=== PATIENT | male | born 1950 | race Caucasian/White ===

== ENCOUNTER 2016-08-15 13:48 | Inpatient (IN) | payer OTHER ==
[~2016-08-15] VITALS: Ht 177.8 cm; Wt 83.7 kg
[2016-08-15 15:59] LABS: BASOPHIL % 0.2 % (0-2); PLATELET COUNT 351 x10^3mcL (130-400); RED CELL DISTRIBUTION WIDTH 14.3 % (11.5-14.5)
[2016-08-15 16:09] LABS: CALCIUM 8.9 mg/dL (8.5-10.1); CARBON DIOXIDE 28.1 mmol/L (21-32); CHLORIDE SERUM 104 mmol/L (98-107); CREATININE SERUM 1.1 mg/dL (0.7-1.3); GFR1 > 60 mL/min; GLUCOSE SERUM 93 mg/dL (74-106); SODIUM SERUM 139 mmol/L (136-145)
[2016-08-15 16:26] LABS: ALBUMIN 3.6 g/dL (3.4-5.0); ALKALINE PHOSPHATASE 97 U/L (46-116); ALT/SGPT 23 U/L (16-63); AST/SGOT 15 U/L (15-37); BILIRUBIN TOTAL 0.4 mg/dL (0.20-1.00); TOTAL PROTEIN, SERUM 7.5 g/dL (6.4-8.2)
[2016-08-15 17:43] LABS: microscopic required? NO
[2016-08-15 17:50] LABS: UA SPECIFIC GRAVITY 1.015 (1.005-1.035); urine erythrocyte NEGATIVE (NEGATIVE)
[2016-08-15 17:57] VITALS: BP 138/88
[2016-08-15 17:59] VITALS: BP 112/69
[2016-08-15 18:46] LABS: CHOLESTEROL/HDL RATIO 4.2
[2016-08-15 18:50] LABS: T3 TOTAL 1.17 ng/mL
[2016-08-15 18:55] LABS: FREE T4 0.97 ng/dL (0.76-1.46); FREE THYROXINE INDEX 3.1 ug/dL (1.4-4.5); T4(THYROXINE) 8.5 ug/dL (4.7-13.3)
[2016-08-15 19:22] LABS: AMPHETAMINE QUAL UR NONE DETECTED (NEG <=1000)
[2016-08-15 21:33] VITALS: BP 128/79
[2016-08-16 05:55] VITALS: BP 117/60
[2016-08-16 06:12] LABS: PLATELET COUNT 334 x10^3mcL (130-400)
[2016-08-16 06:20] LABS: CALCIUM 8.8 mg/dL (8.5-10.1); CARBON DIOXIDE 24.7 mmol/L (21-32); CHLORIDE SERUM 106 mmol/L (98-107); GFR1 > 60 mL/min; GLUCOSE SERUM 128 mg/dL (74-106); MAGNESIUM 2.6 mg/dL (1.8-2.4); POTASSIUM SERUM 4.5 mmol/L (3.5-5.1); SODIUM SERUM 139 mmol/L (136-145)
[2016-08-16 06:25] LABS: BASOPHIL % 0 % (0-2)
[2016-08-16 10:00] VITALS: BP 123/76
[2016-08-16 14:36] VITALS: BP 110/64
[2016-08-16 18:14] VITALS: BP 99/65
[2016-08-16 21:46] VITALS: BP 93/50
[2016-08-17 06:08] VITALS: BP 102/60
[2016-08-17 07:52] LABS: PLATELET COUNT 327 x10^3mcL (130-400); RED CELL DISTRIBUTION WIDTH 14.1 % (11.5-14.5)
[2016-08-17 08:02] LABS: CARBON DIOXIDE 28.5 mmol/L (21-32); CHLORIDE SERUM 108 mmol/L (98-107); CREATININE SERUM 0.9 mg/dL (0.7-1.3); GFR1 > 60 mL/min; GLUCOSE SERUM 128 mg/dL (74-106); SODIUM SERUM 140 mmol/L (136-145)
[2016-08-17 09:47] VITALS: BP 113/71
[2016-08-17 11:46] LABS: BAND NEUTROPHIL 0 % (0-10); BASOPHIL 0 % (0-2); MONOCYTE 3 % (0-7); SEGMENTED NEUTROPHILS 94 % (37-75); rbc morphology (normal/abnorm) NORMAL (NORMAL)
[2016-08-17 11:47] LABS: PLATELET MORPHOLOGY PLATELETS NORMAL
[2016-08-17 13:29] VITALS: BP 121/73
[2016-08-17 17:05] VITALS: BP 124/76
[2016-08-17 20:55] VITALS: BP 115/72
[2016-08-18 06:22] LABS: BASOPHIL % 0.1 % (0-2); PLATELET COUNT 304 x10^3mcL (130-400); RED CELL DISTRIBUTION WIDTH 14.5 % (11.5-14.5)
[2016-08-18 06:29] VITALS: BP 113/72
[2016-08-18 07:01] LABS: CALCIUM 8.5 mg/dL (8.5-10.1); CARBON DIOXIDE 28.6 mmol/L (21-32); CHLORIDE SERUM 108 mmol/L (98-107); CREATININE SERUM 1.1 mg/dL (0.7-1.3); GFR1 > 60 mL/min; GLUCOSE SERUM 84 mg/dL (74-106); MAGNESIUM 2.3 mg/dL (1.8-2.4); PHOSPHOROUS 2.8 mg/dL (2.5-4.9); POTASSIUM SERUM 4.2 mmol/L (3.5-5.1); SODIUM SERUM 142 mmol/L (136-145)
[2016-08-18] MEDS ORDERED: ALBUTEROL SULFAT3 ML NEB (10:15)
[2016-08-18] MEDS ORDERED: LEVAQUIN750 MG PO (10:17)
[2016-08-18] MEDS ORDERED: CLEOCIN HCL300 MG PO (10:17)
[2016-08-18] MEDS ORDERED: MONTELUKAST SOD10 M1 PO ×2 (10:18→10:28)
[2016-08-18] MEDS ORDERED: LAC PO (10:18)
[2016-08-18] MEDS ORDERED: NIC14 TD ×2 (10:23→10:28)
[2016-08-18] MEDS ORDERED: IPRATROPIUM BROM3 M2 INH (10:24)
[2016-08-18 10:32] VITALS: BP 120/78
[2016-08-18 11:20] VITALS: BP 120/78
== END 2016-08-18 16:55 | disposition home or self-care (01) | DRG 190 ==
LOC: ED 13:48 → MU 17:11 → DU 17:11 → MU 08-18 06:56
PROVIDERS: Emergency Medicine; Family Medicine; ADMIT Family Medicine
DX: J44.1 Chronic obstructive pulmonary disease with (acute) exacerbation (principal); J96.00 Acute respiratory failure, unspecified whether with hypoxia or hypercapnia; J98.11 Atelectasis; K21.9 Gastro-esophageal reflux disease without esophagitis; K27.9 Peptic ulcer, site unspecified, unspecified as acute or chronic, without hemorrhage or perforation; Z68.26 Body mass index [BMI] 26.0-26.9, adult; F17.210 Nicotine dependence, cigarettes, uncomplicated
CPT/HCPCS: 80307; 83880; 84439; 94150; C9113; G0480; J1956; J2405; J2920; J2930; J7030; J7613; J7620; J7626; J7644

== ENCOUNTER 2017-01-31 13:23 | Inpatient (IN) | payer OTHER ==
[~2017-01-31] VITALS: Ht 177.8 cm; Wt 80.5 kg
[~2017-01-31 13:23] MED LIST: ALBUTEROL SULFAT3 ML NEB; CLEOCIN HCL300 MG PO; IPRATROPIUM BROM3 M2 INH; LAC PO; LEVAQUIN750 MG PO; MONTELUKAST SOD10 M1 PO; NIC14 TD
[2017-01-31 13:46] LABS: BASOPHIL % 0.7 % (0-2); PLATELET COUNT 398 x10^3mcL (130-400); RED CELL DISTRIBUTION WIDTH 13.4 % (11.5-14.5)
[2017-01-31 13:56] LABS: CALCIUM 9.4 mg/dL (8.5-10.1); CARBON DIOXIDE 28.8 mmol/L (21-32); CHLORIDE SERUM 102 mmol/L (98-107); CREATININE SERUM 1.1 mg/dL (0.7-1.3); GFR1 > 60 mL/min; GLUCOSE SERUM 95 mg/dL (74-106); SODIUM SERUM 138 mmol/L (136-145)
[2017-01-31 14:00] LABS: ALKALINE PHOSPHATASE 78 U/L (46-116); ALT/SGPT 17 U/L (16-63); AST/SGOT 23 U/L (15-37); BILIRUBIN TOTAL 0.57 mg/dL (0.20-1.00); CHOLESTEROL 189 mg/dL (<200); HDL CHOLESTEROL 54 mg/dL (40-60); PHOSPHOROUS 2.4 mg/dL (2.5-4.9)
[2017-01-31 14:03] LABS: ALBUMIN 3.2 g/dL (3.4-5.0)
[2017-01-31] MEDS ORDERED: BAYER ASPIRIN R81 MG PO (15:30)
[2017-01-31] MEDS ORDERED: PROINH INH (15:31)
[2017-01-31] MEDS ORDERED: QVAR0.08 MG/Ac INH (15:31)
[2017-01-31] MEDS ORDERED: ALBUD INH (15:33)
[2017-01-31 15:46] LABS: T3 TOTAL 0.92 ng/mL
[2017-01-31 15:47] LABS: microscopic required? NO
[2017-01-31 15:53] LABS: CHOLESTEROL/HDL RATIO 3.7; MAGNESIUM 2.2 mg/dL (1.8-2.4)
[2017-01-31 16:01] LABS: urine erythrocyte NEGATIVE (NEGATIVE)
[2017-01-31 16:03] LABS: FREE T4 1.11 ng/dL (0.76-1.46); T4(THYROXINE) 8.2 ug/dL (4.7-13.3)
[2017-01-31 16:30] VITALS: BP 129/85
[2017-01-31 16:56] VITALS: Ht 177.8 cm; Wt 80.5 kg
[2017-01-31 18:13] VITALS: BP 129/85
[2017-01-31 21:51] VITALS: BP 124/78
[2017-02-01 05:38] VITALS: BP 107/73
[2017-02-01 06:33] LABS: BASOPHIL % 0.1 % (0-2); PLATELET COUNT 383 x10^3mcL (130-400); RED CELL DISTRIBUTION WIDTH 14.1 % (11.5-14.5)
[2017-02-01 06:41] LABS: CALCIUM 9.1 mg/dL (8.5-10.1); CARBON DIOXIDE 30.1 mmol/L (21-32); CHLORIDE SERUM 104 mmol/L (98-107); CREATININE SERUM 0.9 mg/dL (0.7-1.3); GFR1 > 60 mL/min; GLUCOSE SERUM 112 mg/dL (74-106); MAGNESIUM 2.3 mg/dL (1.8-2.4); PHOSPHOROUS 2.4 mg/dL (2.5-4.9); POTASSIUM SERUM 4.6 mmol/L (3.5-5.1); SODIUM SERUM 138 mmol/L (136-145)
[2017-02-01 09:13] VITALS: BP 111/69
[2017-02-01 13:30] VITALS: BP 104/64
[2017-02-01 17:02] VITALS: BP 100/61
[2017-02-01 19:30] VITALS: BP 102/64
[2017-02-02 05:42] VITALS: BP 116/69
[2017-02-02 06:43] LABS: PLATELET COUNT 356 x10^3mcL (130-400); RED CELL DISTRIBUTION WIDTH 14.1 % (11.5-14.5)
[2017-02-02 06:51] LABS: CALCIUM 8.7 mg/dL (8.5-10.1); CHLORIDE SERUM 106 mmol/L (98-107); CREATININE SERUM 0.9 mg/dL (0.7-1.3); GFR1 > 60 mL/min; GLUCOSE SERUM 132 mg/dL (74-106); MAGNESIUM 2.6 mg/dL (1.8-2.4); PHOSPHOROUS 2.9 mg/dL (2.5-4.9); POTASSIUM SERUM 4.4 mmol/L (3.5-5.1); SODIUM SERUM 140 mmol/L (136-145)
[2017-02-02 08:09] LABS: BAND NEUTROPHIL 2 % (0-10); MONOCYTE 4 % (0-7); SEGMENTED NEUTROPHILS 88 % (37-75); rbc morphology (normal/abnorm) NORMAL (NORMAL)
[2017-02-02 10:21] VITALS: BP 115/60
[2017-02-02 17:20] VITALS: BP 111/62
[2017-02-02 19:59] VITALS: BP 93/54
[2017-02-02 21:09] VITALS: BP 114/60
[2017-02-03 00:42] LABS: AMPHETAMINE QUAL UR NONE DETECTED (NEG <=1000)
[2017-02-03 05:41] VITALS: BP 101/66
[2017-02-03 06:42] LABS: CALCIUM 9.1 mg/dL (8.5-10.1); CARBON DIOXIDE 27.7 mmol/L (21-32); CHLORIDE SERUM 105 mmol/L (98-107); CREATININE SERUM 0.9 mg/dL (0.7-1.3); GFR1 > 60 mL/min; GLUCOSE SERUM 124 mg/dL (74-106); MAGNESIUM 2.9 mg/dL (1.8-2.4); PHOSPHOROUS 3.4 mg/dL (2.5-4.9); POTASSIUM SERUM 4.7 mmol/L (3.5-5.1); SODIUM SERUM 140 mmol/L (136-145)
[2017-02-03 06:54] LABS: PLATELET COUNT 364 x10^3mcL (130-400); RED CELL DISTRIBUTION WIDTH 14.5 % (11.5-14.5)
[2017-02-03 07:00] LABS: BASOPHIL % 0 % (0-2)
[2017-02-03] MEDS ORDERED: LEVAQUIN750 MG PO (07:34)
[2017-02-03] MEDS ORDERED: MUCINEX600 MG PO (07:36)
[2017-02-03] MEDS ORDERED: MONTELUKAST SOD10 M1 PO (07:37)
[2017-02-03] MEDS ORDERED: PEP20 PO (07:39)
[2017-02-03] MEDS ORDERED: LAC PO (07:41)
[2017-02-03 10:11] VITALS: BP 108/63
[2017-02-03 13:54] VITALS: BP 108/63
== END 2017-02-03 14:15 | disposition home or self-care (01) | DRG 190 ==
LOC: ED 13:23 → DU 14:50 → MU 02-02 06:46
PROVIDERS: Emergency Medicine; ADMIT Family Medicine
DX: J44.1 Chronic obstructive pulmonary disease with (acute) exacerbation (principal); J96.01 Acute respiratory failure with hypoxia; E44.0 Moderate protein-calorie malnutrition; K21.9 Gastro-esophageal reflux disease without esophagitis; E83.39 Other disorders of phosphorus metabolism; E83.41 Hypermagnesemia; I34.0 Nonrheumatic mitral (valve) insufficiency; I36.1 Nonrheumatic tricuspid (valve) insufficiency; E78.5 Hyperlipidemia, unspecified; G89.29 Other chronic pain; M54.5 Low back pain; F15.11 Other stimulant abuse, in remission; Z68.27 Body mass index [BMI] 27.0-27.9, adult; F17.210 Nicotine dependence, cigarettes, uncomplicated
CPT/HCPCS: 36600; 83880; 84439; 90658; 94150; J1644; J1956; J2405; J2920; J2930; J7030; J7613; J7620; J7626; J7644; Q0092

== ENCOUNTER 2019-01-02 12:49 | Emergency (ER) | payer OTHER ==
[~2019-01-02] VITALS: Ht 177.8 cm; Wt 83.9 kg
[~2019-01-02 12:49] MED LIST changes: +ALBUD INH; +BAYER ASPIRIN R81 MG PO; +MUCINEX600 MG PO; +PEP20 PO; +PROINH INH; +QVAR0.08 MG/Ac INH
[2019-01-02 12:57] VITALS: Ht 177.8 cm; Wt 83.9 kg
[2019-01-02 13:27] LABS: BASOPHIL % 0.6 % (0-2); PLATELET COUNT 388 x10^3mcL (130-400); RED CELL DISTRIBUTION WIDTH 13.9 % (11.5-14.5)
[2019-01-02 13:39] LABS: CALCIUM 9.1 mg/dL (8.5-10.1); CARBON DIOXIDE 24.7 mmol/L (21-32); CHLORIDE SERUM 105 mmol/L (98-107); CREATININE SERUM 0.9 mg/dL (0.7-1.3); GFR1 > 60 mL/min; GLUCOSE SERUM 90 mg/dL (74-106); POTASSIUM SERUM 3.8 mmol/L (3.5-5.1); SODIUM SERUM 139 mmol/L (136-145)
[2019-01-02 13:44] LABS: ALBUMIN 3.2 g/dL (3.4-5.0); ALKALINE PHOSPHATASE 68 U/L (46-116); ALT/SGPT 17 U/L (16-63); AST/SGOT 12 U/L (15-37); BILIRUBIN TOTAL 0.47 mg/dL (0.20-1.00); TOTAL PROTEIN, SERUM 6.9 g/dL (6.4-8.2)
[2019-01-02 16:07] LABS: microscopic required? NO
[2019-01-02 16:17] LABS: UA SPECIFIC GRAVITY <=1.005 (1.005-1.035); urine erythrocyte NEGATIVE (NEGATIVE)
[2019-01-02 16:35] VITALS: BP 118/79
== END 2019-01-02 16:35 | disposition home or self-care (01) ==
LOC: ED 12:49
PROVIDERS: Emergency Medicine
DX: J44.9 Chronic obstructive pulmonary disease, unspecified (principal); F17.210 Nicotine dependence, cigarettes, uncomplicated; Z88.2 Allergy status to sulfonamides; Z88.5 Allergy status to narcotic agent; Z88.0 Allergy status to penicillin
CPT/HCPCS: 99406; J2930; J7030; J7613; J7644; Q0092